=== PATIENT | male | born 1965 | race Caucasian/White ===

== ENCOUNTER 2017-04-23 15:05 | Emergency (ER) | payer OTHER ==
[2017-04-23] MEDS ORDERED: Dextrose 50% SYRINGE Inj (50 ml) ONE (15:10)
[2017-04-23 15:13] VITALS: BMI 24.2
[2017-04-23] MEDS ORDERED: Dextrose 50% SYRINGE Inj (50 ml) IVP STA (15:13)
[2017-04-23] MEDS ORDERED: Sodium Chloride 0.9% 1,000 ML IV STA (15:13)
[2017-04-23 15:14] VITALS: BP 151/72; RESP 16; O2SAT 99
--- NOTE | 2017-04-23 15:28 | ED PDOC ---
HPI: Altered Mental Status Time Seen by Provider: 04/23/17 15:12 Chief Complaint (Nursing): Altered Mental Status Chief Complaint (Provider): AMS History Per: Patient, EMS, Family (9 year old son) Additional Complaint(s): 51-year-old male with history of diabetes presents to emergency department with altered mental status and fall . Patient was walking with his 9-year-old son when he collapsed and hit the right side of his head against the ground. A bystander contact police and patient was brought here via ambulance. Upon arrival blood sugar was noted to be 37. Patient states he took 15 units of insulin this morning but had nothing to eat. Patient immediately became more alert after administration of dextrose. PMD: in [facility] Past Medical History Reviewed: Historical Data, Nursing Documentation, Vital Signs Vital Signs: Last Vital Signs Temp Pulse 59 L 04/23/17 15:12 Resp 16 04/23/17 15:12 BP 151/72 H 04/23/17 15:12 Pulse Ox 99 04/23/17 15:12 - Medical History PMH: Diabetes - Surgical History Other surgeries: eye surgery - Family History Family History: States: No Known Family Hx - Living Arrangements Living Arrangements: With Family - Social History Current smoker - smoking cessation education provided: No Alcohol: Social Drugs: Denies - Allergies Allergies/Adverse Reactions: Allergies Allergy/AdvReac Type Severity Reaction Status Date / Time No Known Allergies Allergy Verified 04/23/17 15:12 Review of Systems ROS Statement: Except As Marked, All Systems Reviewed And Found Negative Constitutional: Negative for: Fever Cardiovascular: Negative for: Chest Pain Respiratory: Negative for: Cough Gastrointestinal: Negative for: Nausea, Vomiting Neurological: Positive for: Altered Mental Status, Other (syncope, head injury) Physical Exam - Reviewed Nursing Documentation Reviewed: Yes Vital Signs Reviewed: Yes - Physical Exam Appears: Positive for: Well, Non-toxic, No Acute Distress Skin: Negative for: Rash Eye Exam: Positive for: Normal appearance ENT: Positive for: Other (Mild abrasion noted to right maxillary region ) Neck: Positive for: Normal Cardiovascular/Chest: Positive for: Regular Rate, Rhythm Respiratory: Positive for: Normal Breath Sounds. Negative for: Respiratory Distress Gastrointestinal/Abdominal: Positive for: Soft. Negative for: Tenderness, Distended, Guarding, Rebound Extremity: Positive for: Normal ROM Neurologic/Psych: Positive for: Other (awake, not oriented to person, place or time). Negative for: Aphasia, Facial Droop - Laboratory Results Result Diagrams: 04/23/17 15:18 04/23/17 15:18 - ECG Interpretation Of ECG: NSR 65 bpm, no acute finding, reviewed by PA and ED attending O2 Sat by Pulse Oximetry: 99 Pulse Ox Interpretation: Normal - Other Rad CT head X-Ray: Read By Radiologist X-Ray Interpretation: refused by patient Bedside chest X-Ray: Interpreted by Me, Viewed By Me, Read By Radiologist X-Ray Interpretation: no active disease Medical Decision Making Medical Decision Makin-year-old male with altered mental status Blood sugar 37 Patient given IV dextrose. Patient immediately became more awake and alert after administration of dextrose. States he feels much better. Plan CBC CMP Troponin EKG media monitor IVF CT head CXR Glucose is 161 after dextrose was given. After receiving dextrose patient feels much better and wants to leave. Patient refused CT head. Patient does not want to wait for any further diagnostic testing results. Electronics Installer emphasized the importance of full evaluation given syncopal episode and head injury secondary to hypoglycemia. Patient does not wish to stay. Patient made aware he will need to sign out AGAINST MEDICAL ADVICE. The risks and dangers of signing out AGAINST MEDICAL ADVICE which include but are not limited to worsening of current condition, possible traumatic injury to brain and possible were discussed in detail with patient. Patient verbalized understanding of these risks and dangers. Patient is awake and alert and mentally capable and competent to makie the decision to leave AGAINST MEDICAL ADVICE. AMA paperwork reviewed in detail with patient, all questions answered. Patient signed paperwork. Patient was advised to follow up as soon as possible with primary care doctor and is aware that he can return to emergency department any time if acutely worse. Disposition - Clinical Impression Clinical Impression: Hypoglycemia, Left against medical advice, Head injury - Patient ED Disposition Is Patient to be Admitted: No Counseled Patient/Family Regarding: Need For Followup - Disposition Referrals: [facility] [Outside] Disposition: Routine/Home Disposition Time: 16:24 Condition: UNKNOWN Additional Instructions: You have decided to sign out AGAINST MEDICAL ADVICE. Follow up as soon as possible with her primary doctor or seek emergency medical treatment if symptoms worsen. Instructions: Closed Head Injury, Low Blood Sugar in People With Diabetes, Leaving Against Medical Advice Forms: [employer] (E[place]ian)
[2017-04-23 15:33] LABS: BASO % 0.2 % (0.0-2.0); EOS # 0.1 K/uL (0.0-0.7); EOS % 0.7 % (0.0-4.0); LYMPH % 26.9 % (20.0-40.0); MEAN CELL VOLUME 89.3 fl (80.0-94.0); MEAN CORPUSCULAR HGB CONC 33.6 g/dL (33.0-37.0); MEAN PLATELET VOLUME 7.6 fl (7.2-11.7); MONO # 0.8 K/uL (0.0-0.8); MONO % 5.3 % (0.0-10.0); NEUT % 66.9 % (50.0-75.0); NRBC % 0.2 % (0.0-0.0); RED CELL DISTRIBUTION WIDTH 13.4 % (11.5-14.5); WHITE BLOOD COUNT 14.9 K/uL (4.8-10.8)
[2017-04-23 15:54] LABS: ALB/GLOB RATIO 1.3 (1.0-2.1); ALBUMIN 4.7 g/dL (3.5-5.0); ALT/SGPT 49 U/L (21-72); AST/SGOT 34 U/L (17-59); BLOOD UREA NITROGEN 12 mg/dl (9-20); CALCIUM 9.5 mg/dL (8.4-10.2); GFR AFRICAN-AMERICAN > 60; GFR NON-AFRICAN AMERICAN > 60
--- NOTE | 2017-04-23 16:00 | RAD ---
HISTORY: clearance COMPARISON: No prior. FINDINGS: LUNGS: The lungs are well inflated and clear. PLEURA: No significant pleural effusion identified, no pneumothorax apparent. CARDIOVASCULAR: Normal. OSSEOUS STRUCTURES: No significant abnormalities. VISUALIZED UPPER ABDOMEN: Normal. OTHER FINDINGS: None. IMPRESSION: No active pulmonary disease.
[2017-04-23 16:53] VITALS: PULSE 68
--- NOTE | 2017-04-24 19:15 | CARD ---
APPROVED REPORT EKG Measurement Heart [id number] <Conclusion> Normal sinus rhythm Possible Left atrial enlargement Nonspecific ST abnormality Abnormal ECG
== END 2017-04-23 16:52 | disposition left against medical advice (07) ==
LOC: H.ER 15:05
DX: E11.649 Type 2 diabetes mellitus with hypoglycemia without coma (principal); Z79.4 Long term (current) use of insulin; S09.90XA Unspecified injury of head, initial encounter; W19.XXXA Unspecified fall, initial encounter; Y92.480 Sidewalk as the place of occurrence of the external cause
CPT/HCPCS: 71045; 80053; 82948; 84484; 85025; 93005; 96361; 96374; 99285; J7040